=== PATIENT | female | born 1955 | race Caucasian/White ===

== ENCOUNTER → 2020-04-20 | Day surgery (SDC) | payer MEDICARE, BC ==
[~2020-04-20] MED LIST: Ketamine 200 MG/20 ML MDV ONE; Lactated Ringers 1,000 ML IV SCH; Phenylephrine 1% 10 MG/ML SDV ONE; Propofol 200 MG/20 ML SDV ONE; fentaNYL 100 MCG/2 ML SDV ONE
--- NOTE | 2020-04-20 12:47 | OR ---
DATE OF OPERATION: 04/20/2020 PREOPERATIVE DIAGNOSIS: SUSPECTED COLITIS WITH PERSISTENT DIARRHEA. POSTOPERATIVE DIAGNOSIS: SUSPECTED COLITIS WITH PERSISTENT DIARRHEA. SURGEON: Bridger Ramirez MD PROCEDURE: DIAGNOSTIC COLONOSCOPY WITH RANDOM BIOPSIES X5, FORCEPS POLYP REMOVAL X2, SNARE POLYPECTOMY X1. ANESTHESIA: MAC. COMPLICATIONS: None. SPECIMEN: 1. Random colon biopsies x5 from cecum to rectum. 2. Two small hyperplastic polyps in rectal vault. 3. Long-stalked tubular adenoma in distal sigmoid colon, greater than 0.5 cm. FINDINGS: 1. Full-length colonoscopy. 2. Elongated tubular adenoma, sigmoid colon, greater than 0.5 cm. 3. Two small hyperplastic polyps, rectal vault. 4. No signs of active colitis or etiology of patient's diarrhea. RECOMMENDATIONS: 1. Medical followup with Dr. Torres. 2. Followup colonoscopy in 5 years. INDICATIONS: Mrs. Roque had been having about a 4 to 6 week history of diarrhea, occasionally had some blood with her stools. Dr. Torres was concerned about colitis and sent her for diagnostic scope. DESCRIPTION OF PROCEDURE: The patient was prepped and draped, placed in the left lateral decubitus position. A lubricated Olympus colonoscope was inserted and with ease advanced to the cecum. We were able to directly visualize the ileocecal valve and appendiceal orifice. The bowel prep was fine. Unfortunately, I tried multiple different positions to get into her terminal ileum, just could not. She had a very tight and retroflexed valve, hard to get into. Throughout the length of the colon, I could find no signs of any active colitis, vascular abnormalities, bleeding sites, or inflammation. We did do random biopsies from the cecum to the rectum at the cecum, hepatic flexure, sigmoid, rectosigmoid, and rectal vault. The patient did have an elongated tubular adenoma around 45 cm which had been removed with a snare and suctioned into polyp trap #1. She had 2 small hyperplastic-appearing polyps in the rectal vault in the perianal region, both removed with forceps in their entirety. No other lesions were seen. No signs of colitis. Air was suctioned and the scope was removed without complication. INDRA/WIL /[id number]
== END ==
LOC: CC.SDS 10:40
PROVIDERS: ATTEND Family Medicine
DX: K62.1 Rectal polyp (principal); D12.5 Benign neoplasm of sigmoid colon; K52.832 Lymphocytic colitis; E78.00 Pure hypercholesterolemia, unspecified; I10 Essential (primary) hypertension; E55.9 Vitamin D deficiency, unspecified; Z98.890 Other specified postprocedural states; Z79.899 Other long term (current) drug therapy
CPT/HCPCS: J2370; J2704; J3010; J7120

== ENCOUNTER 2023-06-16 11:27 | Emergency (ER) | payer MEDICARE, BC ==
[2023-06-16] MEDS ORDERED: Sodium Chloride 0.9% 10 ML Syringe FLUSH PRN (11:36)
[2023-06-16 11:51] LABS: BASOPHILS ABSOLUTE AUTO 0.05 10^3/uL (0.00-0.50); BASOPHILS PERCENT AUTO 0.9 % (0-1); EOSINOPHILS ABSOLUTE AUTO 0.14 10^3/uL (0.00-1.50); EOSINOPHILS PERCENT AUTO 2.5 % (0-6); HEMATOCRIT 37.9 % (37.0-47.0); LYMPHOCYTES ABSOLUTE AUTO 1.95 10^3/uL (0.60-5.00); LYMPHOCYTES PERCENT AUTO 34.4 % (24-44); MEAN CORPUSCULAR HEMOGLOBIN 29.4 pg (27.0-32.0); MEAN CORPUSCULAR HGB CONC 34.3 g/dL (32.0-36.0); MEAN CORPUSCULAR VOLUME 85.7 fL (83.0-97.0); MONOCYTES ABSOLUTE AUTO 0.44 10^3/uL (0.00-1.50); MONOCYTES PERCENT AUTO 7.8 % (0-10); NEUTROPHILS ABSOLUTE AUTO 3.09 x10^3/uL (1.80-8.00); NEUTROPHILS PERCENT AUTO 54.4 % (41-71); PLATELET COUNT,PLT 209 10^3/uL (150-400); RED BLOOD CELL COUNT 4.42 x10^6/uL (4.00-5.50); WHITE BLOOD CELL COUNT,WBC 5.7 10^3/uL (4.0-11.0)
[2023-06-16 12:10] LABS: ALANINE AMINOTRANSFERASE,ALT 27 U/L (12-78); ALBUMIN 3.4 g/dL (3.4-5.0); ALKALINE PHOSPHATASE 70 U/L (46-116); ASPARTATE AMNIOTRANSFERASE,AST 24 U/L (15-37); BILIRUBIN TOTAL 0.5 mg/dL (0.0-1.0); BLOOD UREA NITROGEN,BUN 26 mg/dL (7-18); CARBON DIOXIDE,CO2 26 mmol/L (21-32); CHLORIDE,CL 102 mEq/L (98-106); CREATININE 1.5 mg/dL (0.6-1.0); GLUCOSE RANDOM 113 mg/dL (75-99); PROTEIN TOTAL,TP 7.4 g/dL (6.4-8.2); SODIUM,NA 138 mEq/L (136-145)
[2023-06-16 12:11] LABS: ESTIMATED GFR 37 mL/min (>=60); POTASSIUM,K 2.9 mEq/L (3.5-5.0)
[2023-06-16] MEDS ORDERED: Potassium Chloride 20 MEQ Tab.ER PO ONE (12:24)
[2023-06-16] MEDS ORDERED: Alum Hydrox/Mag Hydrox/Simeth 30 ML, Lidocaine 2% 15 ML PO ONE ×2 (13:30)
== END 2023-06-16 14:50 | disposition home or self-care (01) ==
LOC: CC.ED 11:27
DX: M10.9 Gout, unspecified (principal); R07.89 Other chest pain; Z79.899 Other long term (current) drug therapy
CPT/HCPCS: 36415; 71046; 80053; 83735; 84484; 85025; 93005; 93010; 99284; 99285; A9270-GY